=== PATIENT | female | born 1960 | race American Indian/Alaskan Native ===

== ENCOUNTER 2017-11-30 07:31 | Outpatient (CLI) | payer BC ==
--- NOTE | 2017-11-30 16:28 | Mammography Report ---
BILATERAL DIGITAL SCREENING MAMMOGRAM with CAD : 11/30/17 07:31:00 CLINICAL: Routine screening.Previous left benign biopsy. COMPARISON:05/11/14 left mammogram. FINDINGS: The breasts are heterogeneously dense, which may obscure small masses.Left retroareolar biopsy clip. No mass, architectural distortion or suspicious calcifications. IMPRESSION: No mammographic evidence of malignancy. BI-RADS CATEGORY: 2 -- Benign RECOMMENDATION: Routine mammographic screening in one year. COMMENT: Patient follow-up letters are generated by our [employer] application.
== END 2017-11-30 07:32 | disposition home or self-care (01) ==
LOC: MAMMO 07:31
PROVIDERS: ATTEND Internal Medicine
DX: Z12.31 Encounter for screening mammogram for malignant neoplasm of breast (principal)
CPT/HCPCS: 77067

== ENCOUNTER 2018-12-01 07:45 | Outpatient (CLI) | payer BC ==
--- NOTE | 2018-12-01 13:09 | Mammography Report ---
BILATERAL DIGITAL SCREENING MAMMOGRAM with CAD : 12/01/18 07:45:00 CLINICAL: Routine screening.Previous left benign biopsy. COMPARISON:11/30/17 FINDINGS: The breasts are heterogeneously dense, which may obscure small masses.A left retroareolar biopsy clip at 6 o'clock. No mass, architectural distortion or suspicious calcifications. IMPRESSION: No mammographic evidence of malignancy. BI-RADS CATEGORY: 2 -- Benign RECOMMENDATION: Routine mammographic screening in one year. COMMENT: Patient follow-up letters are generated by our [employer] application.
== END 2018-12-01 07:46 | disposition home or self-care (01) ==
LOC: MAMMO 07:45
PROVIDERS: ATTEND Internal Medicine
DX: Z12.31 Encounter for screening mammogram for malignant neoplasm of breast (principal)
CPT/HCPCS: 77067

== ENCOUNTER 2019-12-06 07:23 | Outpatient (CLI) | payer BC ==
--- NOTE | 2019-12-06 14:58 | Mammography Report ---
DIGITAL SCREENING MAMMOGRAM WITH CAD, 12/06/2019 INDICATION: Routine screening mammography. TECHNIQUE: Digital bilateral 2D mammography was obtained in the craniocaudal and mediolateral obliq ue projections. This examination was interpreted with the benefit of Computer-Aided Detection analysi s. COMPARISON: 12/01/2018 FINDINGS: Breast Density: The breasts are heterogeneously dense, which may obscure small masses. There is no evidence of dominant mass, suspicious calcifications or architectural distortion in eithe r breast. A left retroareolar biopsy clip and a few adjacent benign calcifications. IMPRESSION: No mammographic evidence of malignancy. Follow up recommendation: Routine yearly BI-RADS Category 2: Benign. A "normal" or negative report should not discourage follow up or biopsy of a clinically significant f inding. A written summary of these findings will be mailed to the patient. The patient will be entered into a mammography reporting system which will generate a reminder letter for the patient's next appointmen t at the appropriate interval. The [employer] recommends yearly mammograms starting at age 40 and continuing as l kaykay as a woman is in good health. Breast MRI is recommended for women with an approximate 20-25% or greater lifetime risk of breast cancer, including women with a strong family history of breast or ova owen cancer or who have been treated for Hodgkin's disease. Signer Name: César Quintero MD Signed: 12/06/2019 2:54 PM Workstation Name: [id number]
== END 2019-12-06 07:24 | disposition home or self-care (01) ==
LOC: MAMMO 07:23
PROVIDERS: ATTEND Internal Medicine
DX: Z12.31 Encounter for screening mammogram for malignant neoplasm of breast (principal)
CPT/HCPCS: 77067

== ENCOUNTER 2021-01-10 07:04 | Outpatient (CLI) | payer BC ==
--- NOTE | 2021-01-10 08:22 | Mammography Report ---
DIGITAL SCREENING MAMMOGRAM WITH CAD, 01/10/2021 CLINICAL INFORMATION / INDICATION: Routine screening mammography. SCREENING MAMMOGRAM TECHNIQUE: Digital bilateral 2D mammography was obtained in the craniocaudal and mediolateral obliqu e projections. This examination was interpreted with the benefit of Computer-Aided Detection analysis . COMPARISON: 12/06/2019 FINDINGS: Breast Density: The breasts are heterogeneously dense, which may obscure small masses. No dominant mass, suspicious calcifications, or architectural distortion in either breast. Breast biopsy clip again noted on the left. IMPRESSION: No mammographic evidence of malignancy. Follow up recommendation: Routine yearly BI-RADS Category 2: Benign. A "normal" or negative report should not discourage follow up or biopsy of a clinically significant f inding. A written summary of these findings will be mailed to the patient. The patient will be entered into a mammography reporting system which will generate a reminder letter for the patient's next appointmen t at the appropriate interval. The [employer] recommends yearly mammograms starting at age 40 and continuing as l kaykay as a woman is in good health. Breast MRI is recommended for women with an approximate 20-25% or greater lifetime risk of breast cancer, including women with a strong family history of breast or ova owen cancer or who have been treated for Hodgkin's disease. Signer Name: Maico Salazar MD Signed: 01/10/2021 8:18 AM Workstation Name: [id number]
== END 2021-01-10 07:05 | disposition home or self-care (01) ==
LOC: MAMMO 07:04
PROVIDERS: ATTEND Internal Medicine
DX: Z12.31 Encounter for screening mammogram for malignant neoplasm of breast (principal); N64.89 Other specified disorders of breast
CPT/HCPCS: 77067

== ENCOUNTER 2021-05-15 07:42 | Outpatient (CLI) | payer BC ==
--- NOTE | 2021-05-15 12:17 | Ultrasound Report ---
LEFT DIGITAL DIAGNOSTIC MAMMOGRAM WITH CAD , 05/15/2021 LEFT LIMITED BREAST ULTRASOUND CLINICAL INFORMATION / INDICATION: The patient reports pain and skin discoloration of the lateral per iareolar left breast for several months TECHNIQUE: Digital left mammographic imaging was performed. Limited ultrasound was performed. This ex amination was interpreted with the benefit of Computer-Aided Detection (CAD) analysis. COMPARISON: Screening mammogram, 12/06/2019, 12/01/2018, 11/30/2017. Left diagnostic mammogram and ultras ound guided biopsy, 05/11/2014 FINDINGS: Breast Density: The breasts are heterogeneously dense, which may obscure small masses. MAMMOGRAPHIC FINDINGS: No dominant mass, suspicious calcifications, or architectural distortion in th e left breast. The circumscribed nodular density at the 6:00 position periareolar location with adjac ent biopsy clip is again noted and unchanged when compared to multiple prior mammograms. There is no focal abnormality to account for the patient's report of pain or skin discoloration. ULTRASOUND FINDINGS: Targeted ultrasound evaluation was performed of the area of interest. Sonographi c evaluation of the left breast at the 2:00 position periareolar location at the site of patient's cl inical concern demonstrates no suspicious solid mass, shadowing or fluid collection. The previously n oted hypoechoic oval mass in the retroareolar region is again noted and has not significantly changed . This is been previously biopsied in 2013. IMPRESSION: 1. No focal mammographic or sonographic abnormality to account for the patient's report of pain and s kin discoloration. Therefore, clinical correlation is recommended. Surgical consultation may be helpf ul if clinically indicated. 2. Stable mammographic and sonographic appearance of periareolar left breast mass which has been prev iously biopsied in 2014 with reportedly benign results. Follow up recommendation: Clinical exam BI-RADS Category 2: Benign. A "normal" or negative report should not discourage follow up or biopsy of a clinically significant f inding. A written summary of these findings will be mailed to the patient. The patient will be entered into a mammography reporting system which will generate a reminder letter for the patient's next appointmen t at the appropriate interval. According to the [employer], yearly mammograms are recommended starting at age 40 and continuing as long as a woman is in good health. Breast MRI is recommended for women with an erickson roximately 20-25% or greater lifetime risk of breast cancer, including women with a strong family his tory of breast or ovarian cancer and women who have been treated for Hodgkin's disease. Signer Name: Dena Dominguez MD Signed: 05/15/2021 12:12 PM Workstation Name: [id number]
== END 2021-05-15 07:43 | disposition home or self-care (01) ==
LOC: US 07:42
PROVIDERS: ATTEND Internal Medicine
DX: N63.23 Unspecified lump in the left breast, lower outer quadrant (principal); N64.4 Mastodynia